=== PATIENT | female | born 1960 | race Caucasian/White ===

== ENCOUNTER 2019-07-03 05:11 | Day surgery (SDC) | payer BC ==
[2019-07-02 08:23] VITALS: BMI 27.8
--- NOTE | 2019-07-03 12:18 | HP ---
[facility] - Chief Complaint Chief Complaint: left wrist fx - Past Medical History Allergies/Adverse Reactions: Allergies Allergy/AdvReac Type Severity Reaction Status Date / Time No Known Allergies Allergy Verified 07/02/19 08:23 - Current Medications Current Medications: Home Medications Medication Instructions Recorded Etanercept [Enbrel] 50 mg SQ WEEKLY 07/02/19 Hydrocodone/Acetaminophen 1 each PO Q6H #30 tablet MDD 4 07/03/19 [Hydrocodone-Acetamin 5-325 mg] Satellite Physical Exam - Physical Examination General Appearance: Well Nourished, Well Developed, Alert & Oriented x3 ENT: Clear Lung: Normal air movement Extremities: Other (left wrist- + ttp , + swelling, decr rom, nvi, xrays show displaced distal radius fx) Neurological: Intact, Alert, Oriented Satellite Impression/Plan - Impression/Plan Impression: left distal radius fx Operative Procedure: left distal radius orif Date to be Performed: 07/03/19
[2019-07-03] MEDS ORDERED: ROPIVACAINE HCL 0.5% 30ML VIAL ONE (14:08)
[2019-07-03] MEDS ORDERED: LIDOCAINE HCL 2% (20ML MULTI-DOSE VIAL) ONE (14:08)
[2019-07-03] MEDS ORDERED: DEXAMETHASONE SOD PHOSPHATE/PF 10 MG/ML SDV ONE (14:08)
[2019-07-03] MEDS ORDERED: MIDAZOLAM HCL 2 MG/2 ML SINGLE DOSE VIAL ONE (14:14)
[2019-07-03] MEDS ORDERED: PROPOFOL 20 ML ONE (14:20)
[2019-07-03] MEDS ORDERED: ceFAZolin SODIUM 1 GM VIAL IVPB ONE (14:40)
[2019-07-03] MEDS ORDERED: ceFAZolin SODIUM 1 GM VIAL ONE (15:00)
--- NOTE | 2019-07-03 16:20 | OP ---
Operative Note - Note: Operative Date: 07/03/19 ([facility]) Pre-Operative Diagnosis: left distal radius fx Operation: left distal radius orif Post-Operative Diagnosis: Same as Pre-op Surgeon: Clarke Rich Repair Manager: Hu Barnett Anesthesiologist/WIRE SAW OPERATOR: Rosalee Bonner Anesthesia: General, Local Estimated Blood Loss (mls): 0 (tourniquet)
--- NOTE | 2019-07-03 16:45 | SPEC ---
DATE OF OPERATION: 07/03/2019 PREOPERATIVE DIAGNOSIS: Left distal radius fracture. POSTOPERATIVE DIAGNOSIS: Left distal radius fracture. PROCEDURE: Left distal radius open reduction internal fixation and brachioradialis tenotomy. SURGEON: Clarke Rich M.D. ASSISTANTS: PAUL Aguirre DRAINS: None. COMPLICATIONS: None. SPECIMENS: None. FLUID REPLACEMENT: 400 mL. BLOOD LOSS: None. BLOOD GIVEN: None. IMPRESSION: [employer] low-profile DVR standard size left distal radius plate with 7 distal, partially threaded locking screws and three 3.5-mm proximal, fully threaded screws. INDICATIONS: This patient is a 59-year-old female with a preoperative diagnosis of a comminuted intra-articular displaced left distal radius fracture. After understanding the potential risks, complications, alternatives, and benefits to surgery versus nonsurgical treatment, the patient understood and elected to undergo this procedure. They understand that her left wrist will never be normal. She may have decreased range of motion, decreased function, decreased ability to move it. DESCRIPTION OF PROCEDURE: Patient was brought to the operating room. Peripheral IV placed. IV sedation given; 2 g of IV Ancef was given. Left interscalene block was performed. The entire case was done under 3.8 loupe magnification. Typical FCR approach was marked out with a marking pen and incision made with No. 15 scalpel blade. Subcutaneous hemostasis was achieved with a bipolar cautery. The radial artery was retracted gently in a radial direction and ulnar to this, using a fresh No. 15 scalpel blade, the muscular fascia was incised. Blunt dissection was done with my index finger down to the volar aspect of the distal radius. Weitlaner retractors were placed deep into the wound for visualization. A periosteal elevator was used to do subperiosteal dissection exposing the fracture site. There was a main transverse component to the distal radius fracture but in addition there were several pieces, some extending towards the radial carpal joint and some towards the distal radial ulnar joint. The fracture site was copiously irrigated and washed out. All debris including hematoma and muscle were removed. A provisional reduction was performed and seemed to come together quite nicely. There was a small metaphyseal defect. X-rays were taken in A-P and lateral planes documenting excellent position of the fracture fragments, restoring radial height inclination and volar tilt. Next a standard hand innovations left volar low profile DVR plate was placed on the volar aspect of the distal radius. Two K-wires were placed and x-rays were taken documenting excellent position, length and subchondral position. Next the central 3.5 mm screw was placed in a standard fashion, this was 14 mm in length, and the second-most ulnar proximal row screw was placed. This was a 24 mm partially threaded locking screw. X-rays again were taken documenting excellent position and support of the subchondral bone. We used three 3.5-mm purple screws through the proximal portion of the plate of 16, 14, and 12 mm in length. Then we used 7 partially threaded distal locking screws through the distal 2 rows of the plate to give it some chondral support. All of the guides were removed and passed off the field. Final x-rays were taken in A-P and lateral planes. I was quite happy with the fracture reduction position, position of the radial carpal joint, distal radial ulnar joint length, height and tilt. Tourniquet time 58 minutes. Farhan [id number]
[2019-07-03] MEDS ORDERED: ACETAMINOPHEN INJECTION 100 ML IVPB ONE (16:51)
[2019-07-03] MEDS ORDERED: ONDANSETRON 4 MG/2 ML VIAL IVPUSH PRN (18:21)
[2019-07-03] MEDS ORDERED: ACETAMINOPHEN 1000 MG/100 ML VIAL (NON FORMULARY) IVPB ONE (18:22)
[2019-07-03] MEDS ORDERED: LACTATED RINGERS SOLUTION 1,000 ML IV SCH (18:30)
[2019-07-03 18:57] VITALS: BP 144/77; PULSE 87; TEMP 98.2
== END 2019-07-03 18:25 | disposition home or self-care (01) ==
LOC: JASU-SURG 05:11
PROVIDERS: ATTEND Orthopaedic Surgery
PROC: 0PSJ04Z Reposition Left Radius with Internal Fixation Device, Open Approach (ICD-10-PCS; principal; 2019-07-03 14:30)
DX: S52.502A Unspecified fracture of the lower end of left radius, initial encounter for closed fracture (principal); Y99.9 Unspecified external cause status
CPT/HCPCS: 25608; C1713; 76000-TC-FY; 94760; J0131